=== PATIENT | female | born 1955 | race African-American/Black ===

== ENCOUNTER 2024-10-28 09:42 | Outpatient (REF) | payer OTHER, SELFPAY ==
[2024-10-28 14:19] LABS: Baso%MD 1.0 %; Eos%MD 2.5 %; Hematocrit 35.1 % (37.0-47.0); Hemoglobin 12.6 g/dl (12.0-16.0); IG%MD 0.4 %; Lymph%MD 25.5 %; Mean Corpuscular HGB Conc 35.9 g/dl (31.0-35.0); Mean Corpuscular Hemoglobin 33.4 pg (27.0-33.0); Mean Corpuscular Volume 93.1 fL (80.0-98.0); Mono%MD 7.6 %; NRBC Abs Auto 0.000 X10*3/uL (0.0-0.012); NRBC Pct Auto 0.0 /100WBC (0.0-0.2); Neut%MD 63.0 %; Platelet Count 292 X10*3/uL (160-400); Red Blood Count 3.77 X10*6/uL (4.20-5.50); White Blood Count 7.7 X10*3/uL (4.8-10.8)
[2024-10-28 14:43] LABS: Alanine Aminotransferase 21 U/L (0-31); Aspartate Amino Transferase 26 U/L (5-31); Estimated Glomerular Filt Rate > 60
[2024-10-28 21:15] LABS: Basophils Abs Manual 0.2 X10*3/uL (0.0-0.2); Basophils Percent Manual 2 % (0-2); Eosinophils Absolute Manual 0.1 X10*3/uL (0.0-0.4); Eosinophils Percent Manual 1 % (0-4); Lymphocytes Absolute Manual 1.8 X10*3/uL (1.2-4.9); Lymphocytes Percent Manual 23 % (20-40); Monocytes Absolute Manual 0.5 X10*3/uL (0.1-1.2); Monocytes Percent Manual 7 % (2-11); Neutrophils Percent Manual 67 % (45-73)
[2024-10-28 21:16] LABS: Band Neutrophils Percent 0 % (3-5); Neutrophils Absolute Manual 5.2 X10*3/uL (2.0-8.3); RBC Morphology NORMAL
[2024-10-29 08:32] LABS: HBS Num1 34.30 mIU/mL (0-7.99); HBc Num1 3.21 S/CO (0.00-0.79); HBsAGNum1 0.44 S/CO (0.00-0.99); Hepatitis B Surface Antigen Negative (Negative); ~HepC Num1 5.72 S/CO (0.00-0.79); ~Hepatitis B Surface Antibody REACTIVE (Nonreactive); ~Hepatitis C Antibody Reactive (Nonreactive)
[2024-10-29 09:23] LABS: HBc Num2 3.14 S/CO; HBc Num3 3.25 S/CO
[2024-10-31 15:38] LABS: TS Negative Control Passed; TS Panel A 0; TS Panel B 0; TS Positive Control Passed; TSpotTB Negative (Negative)
== END 2024-10-28 09:43 | disposition home or self-care (01) ==
LOC: HO.HKASLDS 09:42
PROVIDERS: PCP Internal Medicine Rheumatology; Visit Provider Internal Medicine Rheumatology
DX: Z79.899 Other long term (current) drug therapy (principal); M06.9 Rheumatoid arthritis, unspecified
CPT/HCPCS: 36415; 82565; 84450; 84460; 85007; 85027; 85652; 86140; 86481; 86704; 86706; 86803; 87340; 99212

== ENCOUNTER 2024-10-28 09:42 | Outpatient (AMB) | payer MEDICARE, MEDICAID, SELFPAY ==
--- OUTSIDE RECORDS SUMMARY | 2010-11-14 05:00 | XMS_ITS | Continuity of Care Document ---
Author Organization [facility] Address [address] [place] [address] Phone Care Team Providers Care Customer Contact Sales Associate Name Role Phone Janet Pritchard DDS Unavailable Unavailabl e Procedures Procedure Date [place]. Repair, Broken Case Advance Directives Directive Yes / No Effective Date File Name No Information Encounters Encounter Description Practice Location Reason(s) For Visit Diagnoses Date Provider [facility], [facility] [place], [id number], tel:[phone] [facility] Dental examination [address] [place], [address]. tel: [phone] [facility], [address] [place], [place], [id number], tel:[phone] [facility] examination [facility] Janet. [address] [place], [address]. tel: [phone] [facility], [address] [place], [id number], tel:[phone] [facility] No Information [address] [place], [address]. tel: [phone] [facility], [address] [place], [id number], [place] tel:[phone] [facility] No Information [address] [place], [address]. tel:[phone] [facility], [address] [place], [id number], tel:[phone] [facility] No Information [address] [place], [address]. tel:[phone] [facility], [address], [place], [place], [id number], tel:[phone] [facility] No Information [address] [place], [address]. tel:[phone] Family History Family Member Type Diagnosis Age At Onset No Information Payers Payer name Insurance type Covered democrat ID Yadi ambrosio(s) Medicaid Dental [id number] Social History Type Description Quantity Date Captured Comments Sex Female Smoking Status No Information Chief Complaint And Reason For Visit No Information History Of Present Illness Encounter Date Complaint History Of Prese nt Illness No Information Instructions Date Instruction Additional Infor mation No Information Assessments Type Assessment Date No Information
--- NOTE | 2024-10-28 09:51 | A.OFFVIS_ITS ---
Vital Signs 10/28/24 09:52 Height 5 ft 9.29 in Weight 212 lb 11.937 oz BMI 31.2 BP 130/70 Blood Pressure Location Lt brachial Position Sitting Pulse 69 Pulse Source Pulse Oximeter Pulse Oximetry (%) 95 Oxygen Delivery Method Room Air Intake Visit Reasons: RA/OA Intake Note: Patient presents today for an RA/OA follow up. Allergies methotextrate Allergy (Mild, Uncoded 10/28/24 10:02) nausea HPI HPI RA/OA: Details: She stopped MTX in September 2024 due to recurrent URIs. 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 1 week swelling right wrists MS 20 minutes Her last Remicade infusion was 08/12/2024. [facility] Medical History (Updated 10/28/24 @ 12:38 by Eduardo Mccollum MD) Arthritis, rheumatoid Osteoarthritis Physical Exam Vital Signs: Last Vital Signs Pulse 69 10/28/24 09:52 BP 130/70 10/28/24 09:52 Pulse Ox 95 10/28/24 09:52 Oxygen Delivery Method Room Air 10/28/24 09:52 BMI result Body Mass Index 31.2 Const Other: General: Comfortable CVS: RRR Respiratory: clear to auscultation bilaterally. Good respiratory effort Skin: No lesions seen MSK: Tender to palpate bilateral MCPs, wrists, PIP knees right hand with synovitis of right wrists, bilateral 2nd and 3rd MCPs. She also has synovitis and tenderness on palpation of right knee. Limited range of motion of upper extremities and lower extremities. Bilateral MTP tenderness. Assessment & Plan Assessment & Plan (1) Arthritis, rheumatoid: Comment: Inflammatory arthritis is uncontrolled off of methotrexate and being without Remicade infusion as she is overdue. We discussed next steps of treatment with a course of prednisone. She prefers to remain off of methotrexate. I will resume Remicade at the current dose that [facility] and we will consider increasing dose if she continues to have active disease at follow-up. Rheumatology history: Seropositive rheumatoid factor 522.7, erosive, rheumatoid nodule right elbow. Remicade October 2023 to present, methotrexate February 2022 to 09/2024 d/c due to recurrent URIs. She was treated on prednisone August 2023, which was discontinued. Right elbow nodule resolved on DMARD therapy. Code(s): M06.9 - Rheumatoid arthritis, unspecified Category: Medical Qualifiers: Rheumatoid arthritis location: multiple sites Rheumatoid factor presence: with rheumatoid factor Qualified Code(s): M05.79 - Rheumatoid arthritis with rheumatoid factor of multiple sites without organ or systems involvement Plan: Baseline labs ordered for disease and drug monitoring on high-risk medication Resume Remicade 3 milligram/kilogram every 8 weeks after lab results are back Prednisone course prescribed She wants to remain off of methotrexate Return to clinic in 3 months (2) Other custodial (current) drug therapy: Code(s): Z79.899 - Other custodial (current) drug therapy Category: Medical Plan: See above Orders: Orders Complete Blood Count Man Dif Today M06.9 - Rheumatoid arthritis, unspecified, Z79.899 - 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 (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) drug therapy Alanine Aminotransferase Today M06.9 - Rheumatoid arthritis, unspecified, Z79.899 - Other custodial (current) drug therapy Erythrocyte Sedimentation Rate Today M06.9 - Rheumatoid arthritis, unspecified, Z79.899 - Other custodial (current) drug therapy T Spot TB Today M06.9 - Rheumatoid arthritis, unspecified, Z79.899 - Other custodial (current) drug therapy Hepatitis B,C Profile Today M06.9 - Rheumatoid arthritis, unspecified, Z79.899 - 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 (current) drug therapy Aspartate Amino Transferase Today M06.9 - Rheumatoid arthritis, unspecified, Z79.899 - Other custodial (current) drug therapy Creatinine Today M06.9 - Rheumatoid arthritis, unspecified, Z79.899 - 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 (current) drug therapy C Reactive Protein Today M06.9 - Rheumatoid arthritis, unspecified, Z79.899 - 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 (current) drug therapy Medications: New prednisone Take 4 tablets daily 7 days, 3 tablets daily 7 days, 2 tablets daily 7 days, 1 tablet daily 7 days. Take prednisone with food. 5 mg PO DIRECTED 70 tabs 0RF Coding Level of Care Code Est Pt Level 4 (55285) Complex EM visit Add On G2211 Diagnoses Rheumatoid arthritis involving multiple sites with positive rheumatoid factor M05.79 Rheumatoid arthritis location: multiple sites Rheumatoid factor presence: with rheumatoid factor Other custodial (current) drug therapy Z79.899
[2024-10-28 09:52] VITALS: BP 130/70; PULSE 69; O2SAT 95; BMI 31.2
--- OUTSIDE RECORDS SUMMARY | 2024-10-28 10:15 | XMS_ITS | Data Portability ---
Author Organization [place] [facility] [employer] [facility], [facility] Address [address] [place] [address] Care Team Providers Care Block Hand Name Role Phone HIM [facility] OTHER Assessment No assessment recorded. Plan of Treatment Reminders Order Date Submit Date Provider Last Modified By Organization Details Last Modified Time Details Appointments None recorded. Lab None recorded. Referral None recorded. Procedures None recorded. Surgeries None recorded. Imaging None recorded. Medication Orders doxycycline hyclate 100 mg capsule 2024 025 MERLINE [facility], [address] [place] [address], [address], 5 09:16:07 doxycycline hyclate 100 mg tablet 2024 025 [email or web address] [email or web address] [facility], [address] [place] [address], [address], 5 14:37:47 Patient TargetsNo targets recorded. Patient InstructionsNo instructions recorded. Reason for Referral None Reported. Medical Equipment None Reported. Allergies No known drug allergies Medications Name Sig Start Date Stop Date Status Note LastModified by Organization Details LastModified Time doxycycline hyclate 100 mg capsule Take 1 capsule twice a day by oral route for 7 days. active Not Available Not Available No t Available Vitals Date Recorded Heart rate Body height Body temperature Oxygen saturation Oxygen saturation in Arterial blood by Pulse oximetry Body weight Respiratory rate Systolic And Diastolic Provider Name and Address Organization Details Last Updated DateTime 5 88 /min 177.8 cm 97.7 [degF] 96 % 96 % 99915.5 84 g 16 /min 142/89 mm[Hg] Not Available [employer] - production 14:35:59 Social History None recorded. Functional Status None recorded. Mental Status None recorded. Family History Nothing Reported. Medical History No medical history recorded. Gynecological HistoryNo gynecological history recorded. Obstetrics History GPAL:G 0 P 0 0 0 0 Past Encounters Encounter ID Performer Location Encounter Start Date Encounter Closed Date Diagnosis/Indication Diagnosis SNOMED-CT Code Diagnosis ICD10 Code Diagnosis Note [id number] Roni Toa MD Main - [address] [address] 09/21/2024 14:35:57 09/21/2024 18:13:59 Acute bacterial sinusitis [id number] J01.90 B96.89 As noted, we were called to see this patient regarding concerns of sinus congestion Evaluation in the field was performed by my garnishment specialist colleague, as noted above, I provided real-time direction and supervisio n for this visit. The evaluation revealed a history of prolonged sinus congestion and a double sickening pattern, as well as green discharge despite good hydration and tenderness in the maxillary sinus area. Of note she has RA and is on MTX. No systemic sx. Impression :Partially immunosupp ressed paitent with sinus sx without overt infectious /systemic sx. Will treat empiricall y. Plan:Doxy 100 bid x 7 given no fevers/chi lls Primary care, considerfo llow-up call/visit Dispositio n: We discussed the diagnostic uncertaint y of home visits and the risk associated with this. In this case, the patient and I felt this to be an acceptable and reasonable amount of risk given the benefit of avoiding an ED visit. We discussed the need to seek care urgently/e mergently in the setting of any new or worsening serious symptoms, particular ly high fever, confusion. Health Concerns Section Related Observation LastModified by Organization Detai ls LastModified Time None Recorded Concern Status LastModified by Organization Details LastModified Time None Recorded Advance Directives Directive None Recorded Payers Insurance Date Sequence Insurance Name Policy Number Policy Roberts Covered Member ID Roberts Member ID Guarantor Name 09/21/2024 1 [facility] - DOS ON OR AFTER 2022 - DUAL ELIGIBLE - RETIREMENT OPTIONS AND ONE CARE (MEDICARE REPLACEMENT/ADV ANTAGE - HMO) [employer] [id number] [employer] Notes Date Note Type Note Provider Name and Address Organization Details Recorded Time 09/21/2024 text/html [facility] Nurse Triage Notes (Sandra Romero - RN): Reason For Request: flu like symptoms Patient Reports: Cough, fever greater than 2 days ; Sputum increase ; Cough; Shortness of breath with exertion Denies: Increased work of breathing/labored with or without fever Unable to speak in full sentences without distress Discoloration of skin -cyanosis Needs to sleep sitting up, can t catch breath Shortness of breath in setting of confusion History of asthma, increased use of inhaler COPD Pain with inspiration Chief Complaints: Common Cold PMH: Hypertension PMH Reviewed at 09/21/2024: Allergies Reviewed at 09/21/2024:32 Comments: 69 y.o female complains of Common Cold Pt has not been feeling well for 2 weeks but getting worse over the past week. She has a cough, with dark green congestion. She was having hot and cold chills but does not feel she has a fever. She does not have nausea or vomiting, able to eat and drinks. She has Headaches no body aches. She has been taking OTC , Mucinex, Robitussin, vicks on her chest, nothing has helped She does have mild sob, talking in full sentences, no audible wheeze, she does not have asthma or COPD. She has a grandson that was sick. I provided information on the mobile health provider response time and advised the patient and/or caregiver to monitor reported signs and symptoms. I discussed the warning signs of when to seek emergency care. Manufacturing Technology Professor Organization Information for Matthew Monroy [employer] Legal Name: [facility] Address: [address] [place] [address], Local Operator: Dwayne Schmidt MD [place] No.: [id number] Manufacturing Technology Professor POC Test Results from Matthew Monroy Rapid COVID antigen (14:33:08) COVID: - Rapid influenza antigen (14:33:10) Flu: - .................... .................... .................... .................... .................... .................... .................... . Manufacturing Technology Professor Note From Matthew Monroy: This 69-year-old female with a history including but not limited to HTN and RA requested a visit today to address ongoing URIs symptoms for two weeks patient endorses cough producing green sputum and sinus pressure/congestion. Patient has been using OTC Robitussin with little to no relief. Patient reports less than normal appetite but is hydrating well. Patient denies any chest pain, shortness of breath, CORTEZ, sore throat, fevers, nausea, vomiting, diarrhea. NKDA. Patient presents awake and alert, in no acute distress and speaking full sentences. Her vital signs are reasonably stable and she is afebrile. Nonfocal neurological exam. Normal gait. Diffuse sinus tenderness. Normal oropharynx exam. Lungs are clear throughout auscultation. Abdomen is soft, nontender, nondistended. No lower extremity edema. Rapid COVID include testing are both negative. I treated with doxycycline 100 mg. We discussed the diagnostic uncertainty of home visits and the risk associated with this. In this case, the patient and I felt this to be an acceptable and reasonable amount of risk given the benefit of avoiding an ED visit. I provided education on the patient's prescription was additional OTC/supportive care therapy. I recommend she continue to stay well hydrated, follow up with her PCP this week and present to the emergency department for any new or worsening severe symptoms of chest pain, severe shortness of breath, high fever, altered mental status. Patient was given the opportunity to ask questions and is agreeable to this plan. [facility] Medication Orders: doxycycline hyclate 100 mg tablet: Administered .................... .................... .................... .................... .................... .................... .................... . [facility] Consulted: Yomi Tao .................... .................... .................... .................... .................... .................... .................... . Disposition: Fulfilled Roni Tao MD [address] [place] [address],[address] [facility], [place], [address], [employer] [facility] 09/21/2024 15:24:39 OBGyn Episode No OBEpisode recorded.
== END 2024-10-28 10:57 | disposition home or self-care (01) ==
PROVIDERS: PCP Internal Medicine Rheumatology; Visit Provider Internal Medicine Rheumatology
DX: M05.79 Rheumatoid arthritis with rheumatoid factor of multiple sites without organ or systems involvement (principal); Z79.899 Other long term (current) drug therapy
CPT/HCPCS: 99214; G2211

== ENCOUNTER 2024-11-02 10:14 | Outpatient (REF) | payer OTHER, SELFPAY ==
--- OUTSIDE RECORDS SUMMARY | 2009-03-23 09:49 | XMS_ITS | Continuity of Care Document ---
Author Organization [facility] Address [address] [place] [address] Phone Care Team Providers Care Automatic Teller Machine Servicer Name Role Phone Lara Rae MD Unavailable [...] Location Reason(s) For Visit Diagnoses Date Provider [facility], [address] [place], [address], tel:[phone] [facility] No Information Dec-0 3-200 9 Kyra Bermudez. [address] [place], [address], [place]. tel:[phone] [facility], [address] [place] [address], [address], [place] tel:[phone] [facility] discuss test results (chief complaint)BP check (chief complaint)hea d cold (chief complaint) Goiter, Nontoxic UninodularHTN, BenignAcute Frontal Sinusitis, Infection, Abscess, Empyema, Inflammation, Suppuration 8 Necsutu Lara. [address] [place] [address], [address], [place]. tel:[phone] [facility], [address] [place] [address], [address], [place] tel:[phone] [facility] podiatry (chief complaint) No Information 8 Lana Nix. [address] [place] [address], [id number] [place] [address], [address] [place] [address], . tel:[phone] [facility], [address] [place] [address], [address], [place] tel:[phone] [phone] [place] [address] hypertension (chief complaint) HTN, Benign 8 Necsutu Lara. [address] [place] [address], [address], [place]. tel:[phone] [facility], [address] [place] [address], [address], [place] tel:[phone] [facility] Pain In Limb 8 Lana Nix. [address] [place] [address], [id number] [place] [address], [address] [place] [address], . tel:[phone] [facility], [address] [place] [address], [address], [place] tel:[phone] [facility] blood pressure elevated (chief complaint) HTN, Benign 8 Necsutu Lara. [address] [place] [address], [address], [place]. 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 [address], [id number] [place], [address], [place]. [facility], [address] [place] [address], [address], [place] tel:[phone] [facility] Wants something to help quit smoking (chief complaint) Smoker, Current, 8 Sumaya Krugern. [address] [place] [address], [address], [place]. tel:[phone] [facility], [address] [place] [address], [address], [place] tel:[phone] [facility] podiatry (chief complaint) Plantar Fasciitis 8 [facility]. [address] [place] [address], [place], [place], [id number], [place]. tel:[phone] [facility], [address] [place] [address], [address], [place] tel:[phone] [facility] BP f/u for clearance to get tooth pulled (chief complaint) Goiter, Nontoxic UninodularHTN, Benign 8 Kyra Bermudez. [address] [place] [address], [address], [place]. tel:[phone] [facility], [address] [place] [address], [address], [place] tel:[phone] [facility] hypertension (chief complaint) HTN, BenignHyperlipidemia NEC/NOSHTN, BenignHyperlipidemia NEC/NOSGoiter, Nontoxic UninodularGoiter, Nontoxic Uninodular 8 Noone Boyd. [address] [place] [address], [id number] [place], [id number], . tel:[phone] [facility], [address] [place] [address], [address], [place] tel:[phone] [facility] Pain in both heels (chief complaint) Plantar Fasciitis 5-200 8 Noone Boyd. [address] [place] [address], [id number] [place], [id number], . tel:[phone] [facility], [address] [place] [address], [address], [place] tel:[phone] [facility] dental clearance (chief complaint) HTN, Elevated B/P, w/o Dx Of HTNPREOP EXAM UNSPCFPREOP EXAM UNSPCF 2200 8 Necsutalen Bermudez. [address] [place] [address], [facility], . tel:[phone] [facility], [address] [place] [address], [facility], tel:[phone] [place] [address] discuss test results (chief complaint) High-risk Sexual BehaviorHTN, Elevated B/P, w/o Dx Of HTN 2 8 No Information [facility], [address] [place] [address], [address], [place] tel:[phone] [address] [place] [address] f/u on L foot pain is level 5 (chief complaint) Plantar Fasciitis Apr-0 8-200 8 Nokatherin Nix. [address] [place] [address], [id number] [place], [id number], . tel:[phone] [facility], [address] [place] [address], [address], [place] tel:[phone] [phone] [place] [address] abnormal labs (chief complaint) ABNORMAL BLOOD FINDINGS Apr-0 3-200 8 Sumaya Bergman. [address] [place] [address], [address], [place]. tel:[phone] [facility], [address] [place] [address], [facility], [place] tel:[phone] [facility] podiatry (chief complaint)korey n left heel (chief complaint) Plantar Fasciitis Jun- 5-200 8 Noone Boyd. [address] [place] [address], [id number] , [place], [place], [id number], [place]. tel:[phone] [facility], [address] [place] [address], [address], tel:[phone] [address] [place] [address] podiatry (chief complaint)fol low up (chief complaint) Plantar Fasciitis Jun- 1-200 8 Nokatherin Nix. [address] [place] [address], [id number] , [place], [place], [id number], [place]. tel:[phone] [facility], [address] [place] [address], [address], [place] tel:[phone] [address] [place] [address] L heel pain (chief complaint)bun ion on R foot (chief complaint) Plantar Fasciitis May-2 6200 8 Nokatherin Nix. [address] [place] [address], [id number] , [place], [place], [id number], [place]. tel:[phone] [facility], [address] [place] [address], [address], [place] tel:[phone] [place] [address] physical exam (chief complaint)Pro blems with R arm/hand (chief complaint) Annual Adult Physical 2 2-200 8 Audra Dominique. [address] [place] [address], [address], [place]. tel:[phone] [facility], [address] [place] [address], [address], [place] tel:[phone] [address] [place] [address] Well adult (chief complaint) Varicose Vein, Leg, W Inflammation Sep-0 4-200 7 No Information [facility], [address] [place] [address], [address], [place] tel:[phone] [address] [place] [address] Wants right eye looked at (chief complaint) CONJUNCTIVITIS NOSCORNEA MEMB CHANGE NOSHTN, Elevated B/P, w/o Dx Of HTN August-0 2-200 7 No Information [facility], [address] [place] [address], [facility], [place] tel:[phone] [facility] Old rash on her back (chief complaint) Contact Dermatitis Cold Weather, Xerotic Eczema, Hot Weather, Dyes, Preservatives,Contac t Dermatitis Cold Weather, Xerotic Eczema, Hot Weather, Dyes, Preservatives,ASYMPT VARICOSE VEINSASYMPT VARICOSE VEINS 9200 7 Sanna Samantha. 70 [facility], , [place], [address], . tel:[phone] [facility], [address] [place], [place], [facility], tel:[phone] [facility] Old No Information 6 Treynor Samantha. 70 [facility], [place], [place], [place], [facility], . tel:[phone] Family History Family Member Type Diagnosis Age [...] Record Payers Payer name Insurance type Covered republican ID Authoriza tion(s) No Information Social History [...] HTN, Elevated B/P, w/o Dx Of HTN Call if symptoms persist Related to High-risk Sexual Behavior Order consults Related to Syphi lis, Late, Latent Order consults Related to Annua l Adult Physical Order labs/studies Related to An nual Adult Physical Call if symptoms persist Related to Varicose Vein, Leg, W Inflammation Order consults Related to Varic ose Vein, Leg, W Inflammation Go to ER if symptoms persist or worsen Related to CONJUNCTIVITIS NOS Review medication side effects R elated to CONJUNCTIVITIS NOS Prescribe medications Related to CONJUNCTIVITIS NOS Assessments Type Assessment Date No Information
--- OUTSIDE RECORDS SUMMARY | 2024-11-02 11:21 | XMS_ITS | Data Portability ---
Author Organization ID - [email or web address] [facility], [facility] Address [address] [place] [address] Care Team Providers Care Ssis Ssrs Developer Name Role Phone HIM [facility] OTHER Assessment No assessment recorded. Plan of Treatment Reminders Order Date Submit Date Provider Last Modified By Organization Details Last Modified Time Details Appointments None recorded. Lab None recorded. Referral None recorded. Procedures None recorded. Surgeries None recorded. Imaging None recorded. Medication Orders doxycycline hyclate 100 mg capsule 2024 025 MERLINE [facility] [place], [address] [place] [address], [address], 5 09:16:07 doxycycline hyclate 100 mg tablet 2024 025 [email or web address] [email or web address] [facility] [place], [address] [place] [address], [address], 5 14:37:47 Patient TargetsNo targets recorded. Patient [...] cm 97.7 [degF] 96 % 96 % 28125.5 84 g 16 /min 142/89 mm[Hg] Not [...] SNOMED-CT Code Diagnosis ICD10 Code Diagnosis Note [id number] Roni Tao MD Main - [address] [address] 09/21/2024 14:35:57 09/21/2024 18:13:59 Acute bacterial sinusitis [id number] J01.90 B96.89 As noted, we were called to see this patient regarding concerns of sinus congestion Evaluation in the field was performed by my forensic materials engineer colleague, as noted above, I provided real-time [...] Roberts Member ID Guarantor Name 09/21/[address] [facility] - DOS ON OR AFTER 2022 - DUAL ELIGIBLE - HALF-WAY OPTIONS AND ONE CARE (MEDICARE REPLACEMENT/ADV ANTAGE - HMO) [employer] [id number] [employer] Notes Date Note Type Note [...] signs of when to seek emergency care. Marine Gear Keeper Organization Information for Matthew Monroy [employer] Legal Name: [facility] Address: [address] [place] [address], Dialysis Clinical Manager: Dwayne Schmidt MD [place] No.: [id number] Marine Gear Keeper POC Test Results from Matthew Monroy Rapid COVID antigen (14:33:08) COVID: - Rapid influenza antigen (14:33:10) Flu: - .................... .................... .................... .................... .................... .................... .................... . Marine Gear Keeper Note From Matthew Monroy: This 69-year-old female [...] questions and is agreeable to this plan. [facility] Medication Orders: doxycycline hyclate 100 mg tablet: Administered .................... .................... .................... .................... .................... .................... .................... . [facility] Consulted: Yomi Tao .................... .................... .................... .................... .................... .................... .................... . Disposition: Fulfilled Roni Tao MD [address] [place] [address],[facility] [facility], [place], [address], [employer] - [facility] 09/21/2024 15:24:39 OBGyn Episode No OBEpisode recorded.
[2024-11-04 12:59] LABS: HCV Log PCR <1.18 NOT DETECTED Log IU/mL (NOT DETECTED); HepC Viral Load <15 NOT DETECTED IU/mL (NOT DETECTED)
== END 2024-11-02 10:15 | disposition home or self-care (01) ==
LOC: HO.HKASLDS 10:14
PROVIDERS: Visit Provider Internal Medicine Rheumatology
DX: Z79.899 Other long term (current) drug therapy (principal)
CPT/HCPCS: 36415; 87522

== ENCOUNTER 2024-12-29 07:41 | Outpatient (AMB) | payer OTHER, SELFPAY ==
--- OUTSIDE RECORDS SUMMARY | 2009-03-23 09:49 | XMS_ITS | Continuity of Care Document ---
Author Organization [facility] Address [address] [place] [address] Phone Care Team Providers Care Air Brake Man Name Role Phone Lara Rae MD Unavailable [...] Location Reason(s) For Visit Diagnoses Date Provider [facility], [address] [place], [address], tel:[phone] [facility] No Information Dec-0 3-200 9 Kyra Bermudez. [address] [place], [address], [place]. tel:[phone] [facility], [address] [place] [address], [address], [place] tel:[phone] [facility] discuss test results (chief complaint)BP check (chief complaint)hea d cold (chief complaint) Goiter, Nontoxic UninodularHTN, BenignAcute Frontal Sinusitis, Infection, Abscess, Empyema, Inflammation, Suppuration 8 Necsutu Lara. [address] [place] [address], [address], [place]. tel:[phone] [facility], [address] [place] [address], [address], [place] tel:[phone] [facility] podiatry (chief complaint) No Information 8 Lana Nix. [address] [place] [address], [id number] [place] [address], [address] [place] [address], . tel:[phone] [facility], [address] [place] [address], [address], [place] tel:[phone] [place] [address] hypertension (chief complaint) HTN, Benign 8 Necsutu Lara. [address] [place] [address], [address], [place]. tel:[phone] [facility], [address] [place] [address], [address], [place] tel:[phone] [facility] Pain In Limb 8 Lana Nix. [address] [place] [address], [id number] [place] [address], [address] [place] [address], . tel:[phone] [facility], [address] [place] [address], [address], [place] tel:[phone] [facility] blood pressure elevated (chief complaint) HTN, Benign 8 Necsutu Lara. [address] [place] [address], [address], [place]. 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 [address], [id number] [place], [address], [place]. [facility], [address] [place] [address], [address], [place] tel:[phone] [facility] Wants something to help quit smoking (chief complaint) Smoker, Current, 8 Sumaya Krugern. [address] [place] [address], [address], [place]. tel:[phone] [facility], [address] [place] [address], [address], [place] tel:[phone] [facility] podiatry (chief complaint) Plantar Fasciitis 8 [facility]. [address] [place] [address], [place], [place], [id number], [place]. tel:[phone] [facility], [address] [place] [address], [address], [place] tel:[phone] [facility] BP f/u for clearance to get tooth pulled (chief complaint) Goiter, Nontoxic UninodularHTN, Benign 8 Kyra Bermudez. [address] [place] [address], [address], [place]. tel:[phone] [facility], [address] [place] [address], [address], [place] tel:[phone] [facility] hypertension (chief complaint) HTN, BenignHyperlipidemia NEC/NOSHTN, BenignHyperlipidemia NEC/NOSGoiter, Nontoxic UninodularGoiter, Nontoxic Uninodular 8 Noone Boyd. [address] [place] [address], [id number] [place], [place], [id number], . tel:[phone] [facility], [address] [place] [address], [address], [place] tel:[phone] [facility] Pain in both heels (chief complaint) Plantar Fasciitis 5-200 8 Noone Boyd. [address] [place] [address], [id number] [place], [place], [id number], . tel:[phone] [facility], [address] [place] [address], [address], [place] tel:[phone] [facility] dental clearance (chief complaint) HTN, Elevated B/P, w/o Dx Of HTNPREOP EXAM UNSPCFPREOP EXAM UNSPCF 2200 8 Necsutalen Bermudez. [address] [place] [address], [facility], . tel:[phone] [facility], [address] [place] [address], [facility], tel:[phone] [place] [address] discuss test results (chief complaint) High-risk Sexual BehaviorHTN, Elevated B/P, w/o Dx Of HTN 2 8 No Information [facility], [address] [place] [address], [address], [place] tel:[phone] [address] [place] [address] f/u on L foot pain is level 5 (chief complaint) Plantar Fasciitis Apr-0 8-200 8 Nokatherin Nix. [address] [place] [address], [id number] [place], [place], [id number], . tel:[phone] [facility], [address] [place] [address], [address], [place] tel:[phone] [address] [place] [address] abnormal labs (chief complaint) ABNORMAL BLOOD FINDINGS Apr-0 3-200 8 Sumaya Bergman. [address] [place] [address], [address], [place]. tel:[phone] [facility], [address] [place] [address], [facility], [place] tel:[phone] [facility] Medical podiatry (chief complaint)korey n left heel (chief complaint) Plantar Fasciitis Jun- 5-200 8 Noone Boyd. [address] [place] [address], [id number] , [place], [place], [id number], [place]. tel:[phone] [facility], [address] [place] [address], [address], tel:[phone] [address] [place] [address] podiatry (chief complaint)fol low up (chief complaint) Plantar Fasciitis Jun- 1-200 8 Nokatherin Nix. [address] [place] [address], [id number] , [place], [place], [id number], [place]. tel:[phone] [facility], [address] [place] [address], [address], [place] tel:[phone] [address] [place] [address] L heel pain (chief complaint)bun ion on R foot (chief complaint) Plantar Fasciitis May-2 6200 8 Nokatherin Nix. [address] [place] [address], [id number] , [place], [place], [id number], [place]. tel:[phone] [facility], [address] [place] [address], [address], [place] tel:[phone] [address] [place] [address] physical exam (chief complaint)Pro blems with R arm/hand (chief complaint) Annual Adult Physical 2 2-200 8 Audra Dominique. [address] [place] [address], [address], [place]. tel:[phone] [facility], [address] [place] [address], [address], [place] tel:[phone] [address] [place] [address] Well adult (chief complaint) Varicose Vein, Leg, W Inflammation Sep-0 4-200 7 No Information [facility], [address] [place] [address], [address], [place] tel:[phone] [address] [place] [address] Wants right eye looked at (chief complaint) CONJUNCTIVITIS NOSCORNEA MEMB CHANGE NOSHTN, Elevated B/P, w/o Dx Of HTN August-0 2-200 7 No Information [facility], [address] [place] [address], [facility], [place] tel:[phone] [facility] Old rash on her back (chief complaint) Contact Dermatitis Cold Weather, Xerotic Eczema, Hot Weather, Dyes, Preservatives,Contac t Dermatitis Cold Weather, Xerotic Eczema, Hot Weather, Dyes, Preservatives,ASYMPT VARICOSE VEINSASYMPT VARICOSE VEINS 9200 7 Sanna Samantha. 70 [facility], , [place], [address], . tel:[phone] [facility], [address] [place], [place], [facility], tel:[phone] [facility] Old No Information 6 Belden Samantha. 70 [facility], [place], [place], [place], [facility], . tel:[phone] Family History Family Member Type Diagnosis Age [...] side effects R elated to Smoker, Current, Prescribe medications Related to Smoker, Current, Review medications Related to Sm oker, Current, Go to ER if symptoms persist or worsen Related to HYPERLIPIDEMIA NEC/NOS Review medications Related to HY PERLIPIDEMIA NEC/NOS Review medication side effects R elated to HYPERLIPIDEMIA NEC/NOS Order labs/studies Related to BE NIGN HYPERTENSION Go to ER if symptoms persist or worsen Related to BENIGN HYPERTENSION Prescribe medications Related to BENIGN HYPERTENSION Review medication side effects R elated to BENIGN HYPERTENSION Aerobic exercises recommended Re [...] to Varic ose Vein, Leg, W Inflammation Prescribe medications Related to CONJUNCTIVITIS NOS Review medication side effects R elated to CONJUNCTIVITIS NOS Go to ER if symptoms persist or worsen Related to CONJUNCTIVITIS NOS Assessments Type Assessment Date No Information
--- OUTSIDE RECORDS SUMMARY | 2010-11-14 05:00 | XMS_ITS | Continuity of Care Document ---
Author Organization [facility] Address [address] [place] [address] Phone Care Team Providers Care Rotary Veneer Machine Operator Name Role Phone Janet Pritchard DDS Unavailable Unavailabl e Procedures Procedure Date [place]. Repair, Broken Case Advance Directives Directive Yes / No Effective Date File Name No Information Encounters Encounter Description Practice Location Reason(s) For Visit Diagnoses Date Provider [facility], [facility] [place], [id number], tel:[phone] [facility] Dental examination [address] [place], [address]. tel: [phone] [facility], [address] [place], [place], [id number], tel:[phone] [facility]. [address] [place], [address]. tel: [phone] [facility], [address] [place], [place], [id number], tel:[phone] [facility] No Information [address] [place], [address]. tel: [phone] [facility], [address] [place], [address], [place] tel:[phone] [facility] No Information [address] [place], [address]. tel:[phone] [facility], [address] [place], [id number], tel:[phone] [facility] No Information [address] [place], [address]. tel:[phone] [facility], [address], [place], [place], [id number], tel:[phone] [facility] No Information [address] [place], [address]. tel:[phone] Family History Family Member Type Diagnosis Age At Onset No Information Payers Payer name Insurance type Covered republican ID Yadi ambrosio(s) Medicaid Dental [id number] Social History Type Description Quantity Date Captured Comments Sex Female Smoking Status No Information Chief Complaint And Reason For Visit No Information History Of Present Illness Encounter Date Complaint History Of Prese nt Illness No Information Instructions Date Instruction Additional Infor mation No Information Assessments Type Assessment Date No Information
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
[2024-12-29 08:00] VITALS: BP 160/100; PULSE 53; O2SAT 98; BMI 32.1
== END 2024-12-29 08:34 | disposition left against medical advice (07) ==
PROVIDERS: PCP Internal Medicine Rheumatology; Visit Provider Internal Medicine Rheumatology
DX: M25.551 Pain in right hip (principal); M79.18 Myalgia, other site; M05.79 Rheumatoid arthritis with rheumatoid factor of multiple sites without organ or systems involvement; Z79.899 Other long term (current) drug therapy
CPT/HCPCS: 99214; G2211

== ENCOUNTER 2025-02-09 09:36 | Outpatient (AMB) | payer OTHER, SELFPAY ==
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
[2025-02-09 09:43] VITALS: BP 120/90; PULSE 88; O2SAT 97; BMI 30.9
== END 2025-02-09 10:05 | disposition home or self-care (01) ==
LOC: HO.RHES 09:36
PROVIDERS: Visit Provider Internal Medicine Rheumatology
DX: M05.79 Rheumatoid arthritis with rheumatoid factor of multiple sites without organ or systems involvement (principal); M79.18 Myalgia, other site; Z79.899 Other long term (current) drug therapy
CPT/HCPCS: 99214; G2211

== ENCOUNTER 2025-02-28 09:20 | Outpatient (REF) | payer OTHER, SELFPAY ==
--- OUTSIDE RECORDS SUMMARY | 2009-03-23 08:49 | XMS_ITS | Continuity of Care Document ---
Author Organization [facility] Address [address] [place] [address] Phone Care Team Providers Care Surgical Instrument Technician Name Role Phone Lara Rae MD Unavailable Unavailable Allergies, Adverse Reactions, Alerts Substance Reaction Status Criticality codeine Itching Active No Information Medications Medication Instructions Dosage Effective Dates (start - stop) Status Comments Diflucan 150 mg Tab Take one capsule by mouth daily - Active amoxicillin 875 mg Tab Take 1 tablet by mouth every 12 hours. - Active Coreg 12.5 mg Tab Take 1 tablet by jassi th every 12 hours - Active Xanax 0.5 mg Tab Take 1 tablet by jassi th three times daily prn - Active Zestoretic 20 mg-25 mg Tab Take 1 tablet by mouth daily - Active Chantix 1 mg Tab Take 1 tablet by jassi th every 12 hours. - Active Chantix 0.5 mg Tab Take 1 tablet by jassi th every 12 hours. - Active Mevacor 20 mg Tab Take 1 tablet by jassi th daily - Active Aspirin Low Dose 81 mg Tab, Delayed Release Take 1 tablet daily with food. - Active Advance Directives Directive Yes / No Effective Date File Name No Information Encounters Encounter Description Practice Location Reason(s) For Visit Diagnoses Date Provider [facility], [address] [place], [address], tel:[phone] [facility] No Information Dec-0 3-200 9 Kyra Bermudez. [address] [place], [address], [place]. tel:[phone] [facility], [address] [place] [address], [address], [place] tel:[phone] [facility] discuss test results (chief complaint)BP check (chief complaint)hea d cold (chief complaint) Goiter, Nontoxic UninodularHTN, BenignAcute Frontal Sinusitis, Infection, Abscess, Empyema, Inflammation, Suppuration 8 Necsutu Lara. [address] [place] [address], [address], [place]. tel:[phone] [facility], [address] [place] [address], [address], [place] tel:[phone] [facility] podiatry (chief complaint) No Information 8 Lana Nix. [address] [place] [address], [id number] [place] [address], [address] [place] [address], . tel:[phone] [facility], [address] [place] [address], [address], [place] tel:[phone] [place] [address] hypertension (chief complaint) HTN, Benign 8 Necsutu Lara. [address] [place] [address], [address], [place]. tel:[phone] [facility], [address] [place] [address], [address], [place] tel:[phone] [facility] Pain In Limb 8 Lana Nix. [address] [place] [address], [id number] [place] [address], [address] [place] [address], . tel:[phone] [facility], [address] [place] [address], [address], [place] tel:[phone] [facility] blood pressure elevated (chief complaint) HTN, Benign 8 Necsutu Lara. [address] [place] [address], [address], [place]. 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 [address], [id number] [place], [address], [place]. [facility], [address] [place] [address], [address], [place] tel:[phone] [facility] Wants something to help quit smoking (chief complaint) Smoker, Current, 8 Sumaya Krugern. [address] [place] [address], [address], [place]. tel:[phone] [facility], [address] [place] [address], [address], [place] tel:[phone] [facility] podiatry (chief complaint) Plantar Fasciitis 8 [facility]. [address] [place] [address], [place], [place], [id number], [place]. tel:[phone] [facility], [address] [place] [address], [address], [place] tel:[phone] [facility] BP f/u for clearance to get tooth pulled (chief complaint) Goiter, Nontoxic UninodularHTN, Benign 8 Kyra Bermudez. [address] [place] [address], [address], [place]. tel:[phone] [facility], [address] [place] [address], [address], [place] tel:[phone] [facility] hypertension (chief complaint) HTN, BenignHyperlipidemia NEC/NOSHTN, BenignHyperlipidemia NEC/NOSGoiter, Nontoxic UninodularGoiter, Nontoxic Uninodular 8 Noone Boyd. [address] [place] [address], [id number] [place], [place], [id number], . tel:[phone] [facility], [address] [place] [address], [address], [place] tel:[phone] [facility] Pain in both heels (chief complaint) Plantar Fasciitis 5-200 8 Noone Boyd. [address] [place] [address], [id number] [place], [place], [id number], . tel:[phone] [facility], [address] [place] [address], [address], [place] tel:[phone] [facility] dental clearance (chief complaint) HTN, Elevated B/P, w/o Dx Of HTNPREOP EXAM UNSPCFPREOP EXAM UNSPCF 2200 8 Necsutalen Bermudez. [address] [place] [address], [facility], . tel:[phone] [facility], [address] [place] [address], [facility], tel:[phone] [place] [address] discuss test results (chief complaint) High-risk Sexual BehaviorHTN, Elevated B/P, w/o Dx Of HTN 2 8 No Information [facility], [address] [place] [address], [address], [place] tel:[phone] [place] [address] f/u on L foot pain is level 5 (chief complaint) Plantar Fasciitis Apr-0 8-200 8 Nokatherin Nix. [address] [place] [address], [id number] [place], [place], [id number], . tel:[phone] [facility], [address] [place] [address], [address], [place] tel:[phone] [place] [address] abnormal labs (chief complaint) ABNORMAL BLOOD FINDINGS Apr-0 3-200 8 Sumaya [place]man. [address] [place] [address], [address], [place]. tel:[phone] [facility], [address] [place] [address], [facility], [place] tel:[phone] [facility] podiatry (chief complaint)korey n left heel (chief complaint) Plantar Fasciitis Jun- 5-200 8 Noone Boyd. [address] [place] [address], [id number] , [place], [place], [id number], [place]. tel:[phone] [facility], [address] [place] [address], [address], tel:[phone] [address] [place] [address] podiatry (chief complaint)fol low up (chief complaint) Plantar Fasciitis Jun- 1-200 8 Nokatherin Nix. [address] [place] [address], [id number] , [place], [id number], [place]. tel:[phone] [facility], [address] [place] [address], [address], [place] tel:[phone] [place] [address] L heel pain (chief complaint)bun ion on R foot (chief complaint) Plantar Fasciitis May-2 6200 8 Nokatherin Nix. [address] [place] [address], [id number] , [place], [place], [id number], [place]. tel:[phone] [facility], [address] [place] [address], [address], [place] tel:[phone] [place] [address] physical exam (chief complaint)Pro blems with R arm/hand (chief complaint) Annual Adult Physical 2 2-200 8 Audra Dominique. [address] [place] [address], [address], [place]. tel:[phone] [facility], [address] [place] [address], [address], [place] tel:[phone] [place] [address] Well adult (chief complaint) Varicose Vein, Leg, W Inflammation Sep-0 4-200 7 No Information [facility], [address] [place] [address], [address], [place] tel:[phone] [place] [address] Wants right eye looked at (chief complaint) CONJUNCTIVITIS NOSCORNEA MEMB CHANGE NOSHTN, Elevated B/P, w/o Dx Of HTN August-0 2-200 7 No Information [facility], [address] [place] [address], [facility], [place] tel:[phone] [facility] rash on her back (chief complaint) Contact Dermatitis Cold Weather, Xerotic Eczema, Hot Weather, Dyes, Preservatives,Contac t Dermatitis Cold Weather, Xerotic Eczema, Hot Weather, Dyes, Preservatives,ASYMPT VARICOSE VEINSASYMPT VARICOSE VEINS 9200 7 Sanna Samantha. 70 [facility], , [place], [address], . tel:[phone] [facility], [address] [place], [place], [facility], tel:[phone] [facility] No Information 6 [place] Samantha. 70 [facility], CC, [place], [place], [facility], . tel:[phone] Family History Family Member Type Diagnosis Age At Onset Father Problem (finding) malignant neop lasm of lung (Cause Of ) Father Problem (finding) Problem (finding) Mother Problem (finding) human immunode ficiency virus infection (Cause Of ) Mother Problem (finding) Immunizations Vaccine Date Status Comments flu (split) (3 yrs or older) administered Source: New Immunization Record flu (split) (3 yrs or older) administered Note: Site care and Anti- Pyretic and pain instructions given. ; Source: New Immunization Record Payers Payer name Insurance type Covered green party ID Authoriza tion(s) No Information Social History Type Description Quantity Date Captured Comments Sex Female Smoking Status No Information Chief Complaint And Reason For Visit No Information History Of Present Illness Encounter Date Complaint History Of Prese nt Illness No Information Instructions Date Instruction Additional Infor mation Order consults Related to NONTO X UNINODULAR GOITER Prescribe medications Related to NONTOX UNINODULAR GOITER Review medication side effects R elated to NONTOX UNINODULAR GOITER Order labs/studies Related to NO NTOX UNINODULAR GOITER Go to ER if symptoms persist or worsen Related to NONTOX UNINODULAR GOITER Prescribe medications Related to Routine General Medical Exam Review medications Related to Ro utine General Medical Exam Review medication side effects R elated to Routine General Medical Exam Order labs/studies Related to Ro utine General Medical Exam Prescribe medications Related to Smoker, Current, Review medications Related to Sm oker, Current, Review medication side effects R elated to Smoker, Current, Review medications Related to HY PERLIPIDEMIA NEC/NOS Review medication side effects R elated to HYPERLIPIDEMIA NEC/NOS Go to ER if symptoms persist or worsen Related to HYPERLIPIDEMIA NEC/NOS Prescribe medications Related to BENIGN HYPERTENSION Review medication side effects R elated to BENIGN HYPERTENSION Order labs/studies Related to BE NIGN HYPERTENSION Go to ER if symptoms persist or worsen Related to BENIGN HYPERTENSION Aerobic exercises recommended Re lated to BENIGN HYPERTENSION Aerobic exercises recommended Re lated to HTN, Elevated B/P, w/o Dx Of HTN Go to ER if symptoms persist or worsen Related to HTN, Elevated B/P, w/o Dx Of HTN Order consults Related to Syphi lis, Late, Latent Call if symptoms persist Related to High-risk Sexual Behavior Order consults Related to Annua l Adult Physical Order labs/studies Related to An nual Adult Physical Order consults Related to Varic ose Vein, Leg, W Inflammation Call if symptoms persist Related to Varicose Vein, Leg, W Inflammation Prescribe medications Related to CONJUNCTIVITIS NOS Review medication side effects R elated to CONJUNCTIVITIS NOS Go to ER if symptoms persist or worsen Related to CONJUNCTIVITIS NOS Assessments Type Assessment Date No Information
--- OUTSIDE RECORDS SUMMARY | 2009-03-23 08:49 | XMS_ITS | Continuity of Care Document ---
Author Organization [facility] Address [address] [place] [address] Phone Care Team Providers Care Linux Devops Engineer Name Role Phone Lara Rae MD Unavailable [...] Location Reason(s) For Visit Diagnoses Date Provider [facility], [address] [place], [address], tel:[phone] [facility] No Information Dec-0 3-200 9 Kyra Bermudez. [address] [place], [address], [place]. tel:[phone] [facility], [address] [place] [address], [address], [place] tel:[phone] [facility] discuss test results (chief complaint)BP check (chief complaint)hea d cold (chief complaint) Goiter, Nontoxic UninodularHTN, BenignAcute Frontal Sinusitis, Infection, Abscess, Empyema, Inflammation, Suppuration 8 Necsutu Lara. [address] [place] [address], [address], [place]. tel:[phone] [facility], [address] [place] [address], [address], [place] tel:[phone] [facility] podiatry (chief complaint) No Information 8 Lana Nix. [address] [place] [address], [id number] [place] [address], [address] [place] [address], . tel:[phone] [facility], [address] [place] [address], [address], [place] tel:[phone] [place] [address] hypertension (chief complaint) HTN, Benign 8 Necsutu Lara. [address] [place] [address], [address], [place]. tel:[phone] [facility], [address] [place] [address], [address], [place] tel:[phone] [facility] Pain In Limb 8 Lana Nix. [address] [place] [address], [id number] [place] [address], [address] [place] [address], . tel:[phone] [facility], [address] [place] [address], [address], [place] tel:[phone] [facility] blood pressure elevated (chief complaint) HTN, Benign 8 Necsutu Lara. [address] [place] [address], [address], [place]. 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 [address], [id number] [place], [address], [place]. [facility], [address] [place] [address], [address], [place] tel:[phone] [facility] Wants something to help quit smoking (chief complaint) Smoker, Current, 8 Sumaya Krugern. [address] [place] [address], [address], [place]. tel:[phone] [facility], [address] [place] [address], [address], [place] tel:[phone] [facility] B podiatry (chief complaint) Plantar Fasciitis 8 [facility]. [address] [place] [address], [place], [place], [id number], [place]. tel:[phone] [facility], [address] [place] [address], [address], [place] tel:[phone] [facility] BP f/u for clearance to get tooth pulled (chief complaint) Goiter, Nontoxic UninodularHTN, Benign 8 Kyra Bermudez. [address] [place] [address], [address], [place]. tel:[phone] [facility], [address] [place] [address], [address], [place] tel:[phone] [facility] hypertension (chief complaint) HTN, BenignHyperlipidemia NEC/NOSHTN, BenignHyperlipidemia NEC/NOSGoiter, Nontoxic UninodularGoiter, Nontoxic Uninodular 8 Noone Boyd. [address] [place] [address], [id number] [place], [place], [id number], . tel:[phone] [facility], [address] [place] [address], [address], [place] tel:[phone] [facility] Pain in both heels (chief complaint) Plantar Fasciitis 5-200 8 Noone Boyd. [address] [place] [address], [id number] [place], [place], [id number], . tel:[phone] [facility], [address] [place] [address], [address], [place] tel:[phone] [facility] dental clearance (chief complaint) HTN, Elevated B/P, w/o Dx Of HTNPREOP EXAM UNSPCFPREOP EXAM UNSPCF 2200 8 Necsutalen Bermudez. [address] [place] [address], [facility], . tel:[phone] [facility], [address] [place] [address], [facility], tel:[phone] [place] [address] discuss test results (chief complaint) High-risk Sexual BehaviorHTN, Elevated B/P, w/o Dx Of HTN 2 8 No Information [facility], [address] [place] [address], [address], [place] tel:[phone] [place] [address] f/u on L foot pain is level 5 (chief complaint) Plantar Fasciitis Apr-0 8-200 8 Nokatherin Nix. [address] [place] [address], [id number] [place], [place], [id number], . tel:[phone] [facility], [address] [place] [address], [address], [place] tel:[phone] [place] [address] abnormal labs (chief complaint) ABNORMAL BLOOD FINDINGS Apr-0 3-200 8 Sumaya [place]. [address] [place] [address], [address], [place]. tel:[phone] [facility], [address] [place] [address], [facility], [place] tel:[phone] [facility] Medical podiatry (chief complaint)korey n left heel (chief complaint) Plantar Fasciitis Jun- 5-200 8 Noone Boyd. [address] [place] [address], [id number] , [place], [place], [id number], [place]. tel:[phone] [facility], [address] [place] [address], [address], tel:[phone] [place] [address] podiatry (chief complaint)fol low up (chief complaint) Plantar Fasciitis Jun- 1-200 8 Nokatherin Nix. [address] [place] [address], [id number] , [place], [place], [id number], [place]. tel:[phone] [facility], [address] [place] [address], [address], [place] tel:[phone] [address] [place] [address] L heel pain (chief complaint)bun ion on R foot (chief complaint) Plantar Fasciitis May-2 6200 8 Nokatherin Nix. [address] [place] [address], [id number] , [place], [place], [id number], [place]. tel:[phone] [facility], [address] [place] [address], [address], [place] tel:[phone] [address] [place] [address] physical exam (chief complaint)Pro blems with R arm/hand (chief complaint) Annual Adult Physical 2 2-200 8 Audra Dominique. [address] [place] [address], [address], [place]. tel:[phone] [facility], [address] [place] [address], [address], [place] tel:[phone] [place] [address] Well adult (chief complaint) Varicose Vein, Leg, W Inflammation Sep-0 4-200 7 No Information [facility], [address] [place] [address], [address], [place] tel:[phone] [place] [address] Wants right eye looked at (chief complaint) CONJUNCTIVITIS NOSCORNEA MEMB CHANGE NOSHTN, Elevated B/P, w/o Dx Of HTN August-0 2-200 7 No Information [facility], [address] [place] [address], [facility], [place] tel:[phone] [facility] rash on her back (chief complaint) Contact Dermatitis Cold Weather, Xerotic Eczema, Hot Weather, Dyes, Preservatives,Contac t Dermatitis Cold Weather, Xerotic Eczema, Hot Weather, Dyes, Preservatives,ASYMPT VARICOSE VEINSASYMPT VARICOSE VEINS 9200 7 Sanna Samantha. 70 [facility], , [place], [address], . tel:[phone] [facility], [address] [place], [place], [facility], tel:[phone] [facility] No Information 6 Sloan Samantha. 70 [facility], [place], [place], [place], [facility], . tel:[phone] Family History Family Member Type Diagnosis Age [...] Record Payers Payer name Insurance type Covered alliance party ID Authoriza tion(s) No Information Social [...] persist Related to High-risk Sexual Behavior Order labs/studies Related to An nual Adult Physical Order consults Related to Annua l Adult Physical Call if symptoms persist Related to Varicose Vein, Leg, W Inflammation Order consults Related to Varic ose Vein, Leg, W Inflammation Go to ER if symptoms persist or worsen Related to CONJUNCTIVITIS NOS Review medication side effects R elated to CONJUNCTIVITIS NOS Prescribe medications Related to CONJUNCTIVITIS NOS Assessments Type Assessment Date No Information
--- OUTSIDE RECORDS SUMMARY | 2010-11-14 04:00 | XMS_ITS | Continuity of Care Document ---
Author Organization [facility] Address [address] [place] [address] Phone Care Team Providers Care Conveyor Weigher Operator Name Role Phone Janet Pritchard DDS Unavailable Unavailabl e Procedures Procedure Date [place]. Repair, Broken Case Advance Directives Directive Yes / No Effective Date File Name No Information Encounters Encounter Description Practice Location Reason(s) For Visit Diagnoses Date Provider [facility], [facility] [place], [id number], tel:[phone] [facility] Dental examination 2010 Macho Gonzales. [address] [place], [address]. tel: [phone] [facility], [address] [place], [place], [id number], tel:[phone] [facility] 2010 [facility] Janet. [address] [place], [address]. tel: [phone] [facility], [address] [place], [id number], tel:[phone] [facility] No Information 2008 Nia Aniket. [address] [place], [address]. tel: [phone] [facility], [address] [place], [id number], [place] tel:[phone] [facility] No Information 2008 Nia Aniket. [address] [place], [address]. tel:[phone] [facility], [address] [place], [id number], tel:[phone] [facility] No Information 2008 Nia Aniket. [address] [place], [address]. tel:[phone] [facility], [address], [place], [place], [id number], tel:[phone] [facility] No Information 2008 Nia Aniket. [address] [place], [address]. tel:[phone] Family History Family Member Type Diagnosis Age At Onset No Information Payers Payer name Insurance type Covered democrat ID Yadi ambrosio(s) Medicaid Dental [id number] Social History Type Description Quantity Date Captured Comments Sex Female Smoking Status No Information Chief Complaint And Reason For Visit No Information History Of Present Illness Encounter Date Complaint History Of Prese nt Illness No Information Instructions Date Instruction Additional Infor mation No Information Assessments Type Assessment Date No Information
--- OUTSIDE RECORDS SUMMARY | 2010-11-14 04:00 | XMS_ITS | Continuity of Care Document ---
Author Organization [facility] Address [address] [place] [address] Phone Care Team Providers Care Waste Hand Name Role Phone Janet Pritchard DDS Unavailable Unavailabl e Procedures Procedure Date [place]. Repair, Broken Case Advance Directives Directive Yes / No Effective Date File Name No Information Encounters Encounter Description Practice Location Reason(s) For Visit Diagnoses Date Provider [facility], [facility] [place], [id number], tel:[phone] [facility] examination 2010 [address]. [address] [place], [address]. tel: [phone] [facility], [address] [place], [place], [id number], tel:[phone] [facility] Janet. [address] [place], [address]. tel: [phone] [facility], [address] [place], [place], [id number], tel:[phone] [facility] No Information 2008 Nia Aniket. [address] [place], [address]. tel: [phone] [facility], [address] [place], [id number], [place] tel:[phone] [facility] No Information 2008 Nia Aniket. [address] [place], [address]. tel:[phone] [facility], [address] [place], [id number], tel:[phone] [facility] No Information 2008 Nia Aniket. [address] [place], [address]. tel:[phone] [facility], [address], [place], [place], [id number], tel:[phone] [facility] No Information 2008 Nia Aniket. [address] [place], [address]. tel:[phone] Family History Family Member Type Diagnosis Age At Onset No Information Payers Payer name Insurance type Covered democrat ID Yadi ambrosio(s) Medicaid [facility] [id number] Social History Type Description Quantity Date Captured Comments Sex Female Smoking Status No Information Chief Complaint And Reason For Visit No Information History Of Present Illness Encounter Date Complaint History Of Prese nt Illness No Information Instructions Date Instruction Additional Infor mation No Information Assessments Type Assessment Date No Information
--- OUTSIDE RECORDS SUMMARY | 2025-02-23 13:00 | XMS_ITS | Data Portability ---
Author Organization [place] - [employer] [facility], [facility] Address [address] [place] [phone] Care Team Providers Care Optical Assistant Name Role Phone HIM CCA OTHER Assessment No assessment recorded. Plan of Treatment Reminders Order Date Submit Date Provider Last Modified By Organization Details Last Modified Time Details Appointments None recorded. Lab None recorded. Referral None recorded. Procedures None recorded. Surgeries None recorded. Imaging None recorded. Medication Orders doxycycline hyclate 100 mg capsule 2024 025 [facility], [address] [place] [address], [id number], 5 09:16:07 doxycycline hyclate 100 mg tablet 2024 025 [email or web address] [email or web address] [facility], [address] [place] [address], [id number], 14:37:47 Patient TargetsNo targets recorded. Patient InstructionsNo [...] and Address Organization Details Last Updated DateTime 88 /min 177.8 cm 97.7 [degF] 96 % 96 % 66657.5 84 g 16 /min 142/89 mm[Hg] Not [...] Diagnosis SNOMED-CT Code Diagnosis ICD10 Code Diagnosis IMO Codes Diagnosis Note [id number] Roni Tao MD Main - [address] [phone] 09/21/2024 14:35:57 09/21/2024 18:13:59 Acute bacterial sinusitis [id number] J01.90 B96.89 [id number] As noted, we were called to see this patient regarding concerns of sinus congestion Evaluation in the field was performed by my dev manager colleague, as noted above, I provided real-time [...] Roberts Member ID Guarantor Name 09/21/2024 1 [facility] - DOS ON OR AFTER 2022 - DUAL ELIGIBLE - HALFWAY OPTIONS AND ONE CARE (MEDICARE REPLACEMENT/ADV ANTAGE - HMO) [facility] [id number] [facility] Notes Date Note Type Note [...] Common Cold PMH: Hypertension PMH Reviewed at 09/21/2024:32 Allergies Reviewed at 09/21/2024:32 Comments: 69 y.o [...] signs of when to seek emergency care. Environmental Research Scientist Organization Information for Matthew Monroy OWM Legal Name: [facility] Address: [address] [place] [address], [place] [address], High Pressure Boiler Operator: Dwayne Schmidt MD [place] No.: [id number] Environmental Research Scientist POC Test Results from Matthew Monroy Rapid COVID antigen (14:33:08) COVID: - Rapid influenza antigen (14:33:10) Flu: - .................... .................... .................... .................... .................... .................... .................... . Environmental Research Scientist Note From Matthew Monroy: This 69-year-old female [...] .................... . Disposition: Fulfilled Roni Tao MD [address] [place] [address],[address], [place], [phone], JHOAN REZA 09/21/2024 15:24:39 OBGyn Episode No OBEpisode recorded.
--- OUTSIDE RECORDS SUMMARY | 2025-02-28 10:12 | XMS_ITS | Data Portability ---
Author Organization [place] - [employer] [facility], [facility] Address [address] [place] [phone] Care Team Providers Care Summer Counselor Name Role Phone HIM CCA OTHER Assessment No assessment recorded. Plan of Treatment Reminders Order Date Submit Date Provider Last Modified By Organization Details Last Modified Time Details Appointments None recorded. Lab None recorded. Referral None recorded. Procedures None recorded. Surgeries None recorded. Imaging None recorded. Medication Orders doxycycline hyclate 100 mg capsule 2024 025 [facility], [address] [place] [address], [id number], 5 09:16:07 doxycycline hyclate 100 mg tablet 2024 025 [email or web address] [email or web address] [facility], [address] [place] [address], [id number], 5 14:37:47 Patient TargetsNo targets recorded. Patient [...] cm 97.7 [degF] 96 % 96 % 15042.5 84 g 16 /min 142/89 mm[Hg] Not [...] ICD10 Code Diagnosis IMO Codes Diagnosis Note [id number] Roni Tao MD Main - [address] [id number] 09/21/2024 14:35:57 09/21/2024 18:13:59 Acute bacterial sinusitis [id number] J01.90 B96.89 [id number] As noted, we were called to see this patient regarding concerns of sinus congestion Evaluation in the field was performed by my motion picture commentator colleague, as noted above, I provided real-time [...] Roberts Member ID Guarantor Name 09/21/2024 1 [facility] - DOS ON OR AFTER 2022 - DUAL ELIGIBLE - RETIREMENT OPTIONS AND ONE CARE (MEDICARE REPLACEMENT/ADV ANTAGE - HMO) [facility] [id number] [facility] Notes Date Note Type Note [...] signs of when to seek emergency care. Rubbish Collection Supervisor Organization Information for Matthew Monroy [employer] Legal Name: [facility] Address: [address] [place] [address], [place] [address], Gis Software Engineer: Dwayne Schmidt MD [place] No.: [id number] Rubbish Collection Supervisor POC Test Results from Matthew Monroy Rapid COVID antigen (14:33:08) COVID: - Rapid influenza antigen (14:33:10) Flu: - .................... .................... .................... .................... .................... .................... .................... . Rubbish Collection Supervisor Note From Matthew Monroy: This 69-year-old female [...] questions and is agreeable to this plan. [facility] Medication Orders: doxycycline hyclate 100 mg tablet: Administered .................... .................... .................... .................... .................... .................... .................... . [facility] Consulted: Yomi Tao .................... .................... .................... .................... .................... .................... .................... . Disposition: Fulfilled Roni Tao MD [address] [place] [address],[address], [place], [phone], JHOAN REZA 09/21/2024 15:24:39 OBGyn Episode No OBEpisode recorded.
[2025-02-28 13:23] LABS: MANUAL DIFF FLAG NO
[2025-02-28 13:29] LABS: Hematocrit 40.1 % (37.0-47.0); Hemoglobin 13.2 g/dl (12.0-16.0); Imm Gran Abs Auto 0.07 X10*3/uL (0.00-0.03); Imm Gran Pct Auto 0.5 % (0.0-0.4); Lymphocytes Absolute Auto 2.3 X10*3/uL (1.2-4.9); Mean Corpuscular HGB Conc 32.9 g/dl (31.0-35.0); Mean Corpuscular Hemoglobin 30.1 pg (27.0-33.0); Mean Corpuscular Volume 91.6 fL (80.0-98.0); NRBC Abs Auto 0.000 X10*3/uL (0.0-0.012); NRBC Pct Auto 0.0 /100WBC (0.0-0.2); Platelet Count 307 X10*3/uL (160-400); Red Blood Count 4.38 X10*6/uL (4.20-5.50); White Blood Count 13.1 X10*3/uL (4.8-10.8)
[2025-02-28 14:05] LABS: Alanine Aminotransferase 15 U/L (0-31); Aspartate Amino Transferase 17 U/L (5-31); Estimated Glomerular Filt Rate > 60
== END 2025-02-28 09:21 | disposition home or self-care (01) ==
LOC: HO.HKASLDS 09:20
PROVIDERS: Visit Provider Internal Medicine Rheumatology
DX: Z79.899 Other long term (current) drug therapy (principal)
CPT/HCPCS: 36415; 82565; 84450; 84460; 85025; 85652; 86140